=== PATIENT | female | born 1995 | race Two or more races ===

== ENCOUNTER 2020-09-24 21:52 | Emergency (ER) | payer OTHER ==
[2020-09-24] MEDS ORDERED: PERCOCET 5-3251 EACH PO (23:10)
[2020-09-24] MEDS ORDERED: AUGMENTIN 875-1 EACH PO (23:10)
== END 2020-09-24 23:24 | disposition home or self-care (01) ==
LOC: FER 21:52
DX: T70.0XXA Otitic barotrauma, initial encounter (principal); X58.XXXA Exposure to other specified factors, initial encounter
CPT/HCPCS: 99283